=== PATIENT | male | born 1995 | race American Indian/Alaskan Native ===

== ENCOUNTER 2021-09-28 01:20 | Emergency (ER) | payer SELFPAY ==
[2021-09-28 02:13] VITALS: BP 133/88
[2021-09-28 03:29] LABS: Bilirubin,Urine NEG (Negative); Blood,Urine LG (Negative); Color,Urine Red (Yellow); Mucus,Urine FEW /HPF
[2021-09-28 03:32] LABS: RBC,Urine > 182.0 /HPF (0.0-6.0)
--- NOTE | 2021-09-28 03:38 | Cat Scan Report ---
CT ABDOMEN AND PELVIS WITHOUT CONTRAST INDICATION / CLINICAL INFORMATION: Gross hematuria, r/o kidney stones. TECHNIQUE: Axial CT images were obtained through the abdomen and pelvis without IV contrast. All CT scans at [facility] location are performed using CT dose reduction for ALARA by means of automated exposure control. COMPARISON: None available. FINDINGS: LOWER CHEST: No significant abnormality. LIVER: No significant abnormality. GALLBLADDER: No significant abnormality. BILE DUCTS: No significant abnormality. PANCREAS: No significant abnormality. SPLEEN: No significant abnormality. ADRENALS: No significant abnormality. RIGHT KIDNEY and URETER: Multiple calculi project within the right collecting system with mild promin ence of the right collecting system.. LEFT KIDNEY and URETER: No significant abnormality. STOMACH and SMALL BOWEL: No significant abnormality. COLON: No significant abnormality. APPENDIX: Not identified. PERITONEUM: No free fluid. No free air. No fluid collection. LYMPH NODES: No significant adenopathy. AORTA and ARTERIES: No significant abnormality. IVC and VEINS: No significant abnormality. URINARY BLADDER: No significant abnormality. REPRODUCTIVE ORGANS: No significant abnormality. ADDITIONAL FINDINGS: None. SKELETAL SYSTEM: No significant abnormality. IMPRESSION: Right-sided nephrolithiasis with slight prominence of the right collecting system. Has the patient re cently passed a urinary calculus No definite visualized calculus is identified within the right urete r at this time.. Signer Name: Margarito Pepe MD Signed: 09/28/2021 3:34 AM Workstation Name: [id number]
--- NOTE | 2021-09-28 04:27 | Emergency Department Report ---
ED Male HPI - General Chief complaint: Urogenital-Male Stated complaint: URINATING BLOOD Source: patient Mode of arrival: Ambulatory Limitations: No Limitations - History of Present Illness Initial comments: Patient is a 25-year-old -Citizen Of The [place] male with no past medical history presents to the ED with complaint of acute onset persistent gross hematuria intermittently for the last 1 week, worse in the last 24 hours with each episode of urination. Patient states that in the last 24 hours, each episode of urination he notices significant hematuria and he got concerned and decided come to the ED for evaluation. Patient denies testicular pain, dysuria, urinary frequency and urgency, fever, chills, penile discharge, abdominal pain, low back pain, flank pain, chest pain or shortness of breath and traumatic injury. MD Complaint: other (Gross hematuria) -: Sudden, week(s) (1) Location: penis Radiation: none Severity: moderate Consistency: constant Improves with: none Worsens with: urination denies other symptoms, blood in urine. denies: discharge, swelling, mass, rash, urinary retention, dysuria, fever, nausea/vomiting, incontinence - Related Data Sexually active: Yes Previous Rx's Medication Instructions Recorded Last Taken Type Ciprofloxacin HCl 500 mg PO Q12H #20 tab 09/28/21 Unknown Rx Ketorolac [Toradol] 10 mg PO Q8H PRN #20 tab 09/28/21 Unknown Rx Tamsulosin [Flomax] 0.4 mg PO QDAY #15 cap 09/28/21 Unknown Rx Allergies Allergy/AdvReac Type Severity Reaction Status Date / Time No Known Allergies Allergy Verified 09/28/21 02:13 ED Review of Systems ROS: Stated complaint: URINATING BLOOD Other details as noted in HPI Constitutional: denies: chills, fever Eyes: denies: eye pain, eye discharge, vision change ENT: denies: ear pain, throat pain Respiratory: denies: cough, shortness of breath, wheezing Cardiovascular: denies: chest pain, palpitations Endocrine: no symptoms reported Gastrointestinal: denies: abdominal pain, nausea, diarrhea Genitourinary: hematuria (Gross hematuria). denies: urgency, dysuria Musculoskeletal: denies: back pain, joint swelling, arthralgia Skin: denies: rash, lesions Neurological: denies: headache, weakness, paresthesias Psychiatric: denies: anxiety, depression Hematological/Lymphatic: denies: easy bleeding, easy bruising ED Past Medical Hx - Past Medical History Previous Medical History?: No - Surgical History Past Surgical History?: No - Medications Home Medications: Home Medications Medication Instructions Recorded Confirmed Last Taken Type Ciprofloxacin HCl 500 mg PO Q12H #20 tab 09/28/21 Unknown Rx Ketorolac [Toradol] 10 mg PO Q8H PRN #20 tab 09/28/21 Unknown Rx Tamsulosin [Flomax] 0.4 mg PO QDAY #15 cap 09/28/21 Unknown Rx ED Physical Exam - General Limitations: No Limitations General appearance: alert, in no apparent distress - Head Head exam: Present: atraumatic, normocephalic, normal inspection - Eye Eye exam: Present: normal appearance, PERRL, EOMI Pupils: Present: normal accommodation - ENT ENT exam: Present: normal exam, normal orophraynx, mucous membranes moist, TM's normal bilaterally, normal external ear exam - Neck Neck exam: Present: normal inspection, full ROM. Absent: tenderness - Respiratory Respiratory exam: Present: normal lung sounds bilaterally. Absent: respiratory distress, wheezes, rales, rhonchi, chest wall tenderness, accessory muscle use, decreased breath sounds, prolonged expiratory - Cardiovascular Cardiovascular Exam: Present: regular rate, normal rhythm, normal heart sounds. Absent: systolic murmur, diastolic murmur, rubs, gallop - GI/Abdominal GI/Abdominal exam: Present: soft, normal bowel sounds. Absent: tenderness, guarding, rebound, hyperactive bowel sounds, hypoactive bowel sounds - External exam: Present: other (Genital deferred at this time) - Extremities Exam Extremities exam: Present: normal inspection, full ROM, normal capillary refill. Absent: tenderness - Back Exam Back exam: Present: normal inspection, full ROM. Absent: tenderness, CVA tenderness (R), CVA tenderness (L), muscle spasm, paraspinal tenderness, vertebral tenderness - Neurological Exam Neurological exam: Present: alert, oriented X3, CN II-XII intact, normal gait, reflexes normal - Psychiatric Psychiatric exam: Present: normal affect, normal mood - Skin Skin exam: Present: warm, dry, intact, normal color. Absent: rash ED Course Vital Signs 09/28/21 02:09 Temperature 98.8 F Pulse Rate 70 Respiratory 12 Rate Blood Pressure 133/88 [Right] O2 Sat by Pulse 99 Oximetry ED Medical Decision Making - Lab Data Result diagrams: 09/28/21 03:40 09/28/21 03:40 - Radiology Data Radiology results: report reviewed, image reviewed [facility] [address] [place] [address] Cat Scan Report Signed Patient: ELIDIA RÍOS MR#: [id number] : 1995 Acct:[id number] Age/Sex: 25 / M ADM Date: 09/28/21 Loc: ED Attending Dr: Ordering Physician: OMAR OCNNORS Date of Service: 09/28/21 Procedure(s): CT abdomen pelvis wo con Accession Number(s): [id number] cc: OMAR CONNORS CT ABDOMEN AND PELVIS WITHOUT CONTRAST INDICATION / CLINICAL INFORMATION: Gross hematuria, r/o kidney stones. TECHNIQUE: Axial CT images were obtained through the abdomen and pelvis without IV contrast. All CT scans at this location are performed using CT dose reduction for ALARA by means of automated exposure control. COMPARISON: None available. FINDINGS: LOWER CHEST: No significant abnormality. LIVER: No significant abnormality. GALLBLADDER: No significant abnormality. BILE DUCTS: No significant abnormality. PANCREAS: No significant abnormality. SPLEEN: No significant abnormality. ADRENALS: No significant abnormality. RIGHT KIDNEY and URETER: Multiple calculi project within the right collecting system with mild prominence of the right collecting system.. LEFT KIDNEY and URETER: No significant abnormality. STOMACH and SMALL BOWEL: No significant abnormality. COLON: No significant abnormality. APPENDIX: Not identified. PERITONEUM: No free fluid. No free air. No fluid collection. LYMPH NODES: No significant adenopathy. AORTA and ARTERIES: No significant abnormality. IVC and VEINS: No significant abnormality. URINARY BLADDER: No significant abnormality. REPRODUCTIVE ORGANS: No significant abnormality. ADDITIONAL FINDINGS: None. SKELETAL SYSTEM: No significant abnormality. IMPRESSION: Right-sided nephrolithiasis with slight prominence of the right collecting system. Has the patient recently passed a urinary calculus No definite visualized calculus is identified within the right ureter at this time.. Signer Name: Margarito Pepe MD Signed: 09/28/2021 3:34 AM Workstation Name: [id number] Transcribed By: Dictated By: Margarito Pepe MD Electronically Authenticated By: Margarito Pepe MD Signed Date/Time: 09/28/21 0334 DD/ 9 TD/TT: - Medical Decision Making This is a 25-year-old -Citizen Of [place] male with no past medical history presents to the ED with complaint of acute onset persistent gross hematuria intermittently for the last 1 week, worse in the last 24 hours with each episode of urination. Patient states that in the last 24 hours, each episode of urination he notices significant hematuria and he got concerned and decided come to the ED for evaluation. In the ED, patient is alert and oriented x3 and is not in any distress. Patient is hemodynamically stable. Lab test results were reviewed and showed mild hypokalemia of 3.4 mmol/L and gross hematuria on urinalysis. Abdomen pelvis CT scan without contrast showed multiple calculi project within the right collecting system with mild prominence of the right collecting system. Patient was treated in the ED with Flomax. Patient was discharged home on pain medications, antibiotics, and Flomax and given a referral to the urologist Dr. Washburn for evaluation. Patient is advised to c ontact Dr. Washburn's office to schedule a follow-up appointment on Thursday September 30, 2021. Patient was advised return to the ED immediately if symptoms get worse. - Differential Diagnosis UTI; kidney stone; cystitis; STD; epididymitis; prostatitis, testicular CA Critical care attestation.: If time is entered above; I have spent that time in minutes in the direct care of this critically ill patient, excluding procedure time. ED Disposition Clinical Impression: Persistent gross hematuria, Calculus of right kidney, Acute urinary tract infection Disposition: HOME / SELF CARE / HOMELESS Is pt being admited?: No Does the pt Need Aspirin: No Condition: Stable Instructions: Kidney Stones, [id number], Renal Colic, Urinary Tract Infection, Adult, [id number], Hematuria, Adult Additional Instructions: The abdomen pelvis CT scan without contrast showed multiple calculi project within the right collecting system with mild prominence of the right collecting system. Therefore the gross hematuria is due to the kidney stones, or having passed kidney stone in the last few days. Therefore take medications with food, drink plenty of fluids, follow-up with the urologist Dr. Mona Mock in the next 3 to 5 days for reevaluation. Contact his office the first thing on Thursday, September 30, 2021 to schedule a follow-up appointment. Return to the ED immediately if symptoms get worse. Prescriptions: Ciprofloxacin HCl 500 mg PO Q12H #20 tab Tamsulosin [Flomax] 0.4 mg PO QDAY #15 cap Ketorolac [Toradol] 10 mg PO Q8H PRN #20 tab PRN Reason: Pain Referrals: ARIES WASHBURN MD [Staff Physician] - 3-5 Days THOR KIM MD [Primary Care Provider] - 7-10 days Time of Disposition: 04:31 Print Language: KENYAN
[2021-09-28] MEDS ORDERED: TAMSULOSIN 0.4 MG CAP PO ONE (04:36)
[2021-09-28 04:44] LABS: Alanine Aminotransferase 13 units/L (7-56); Albumin 4.5 g/dL (3.9-5); BUN/Creatinine Ratio 12; Blood Urea Nitrogen 12 mg/dL (9-20); Calcium 8.9 mg/dL (8.4-10.2); Hemolysis Index 9
[2021-09-28 04:50] LABS: Basophils % (Auto) 0.4 % (0.0-1.8); Eosinophils # (Auto) 0.1 K/mm3 (0.0-0.4); Eosinophils % (Auto) 0.9 % (0.0-4.3); Hematocrit 39.1 % (35.5-45.6); Hemoglobin 12.7 gm/dl (11.8-15.2); Lymphocytes # (Auto) 2.5 K/mm3 (1.2-5.4); Lymphocytes % (Auto) 24.7 % (13.4-35.0); Mean Corpuscular HGB Conc 33 % (32-34); Mean Corpuscular Volume 87 fl (84-94); Monocytes # (Auto) 0.7 K/mm3 (0.0-0.8); Monocytes % (Auto) 6.7 % (0.0-7.3); Platelet Count 206 K/mm3 (140-440); Red Blood Count 4.49 M/mm3 (3.65-5.03); Red Cell Distribution Width 14.7 % (13.2-15.2)
== END 2021-09-28 05:58 | disposition home or self-care (01) ==
LOC: ED 01:20
DX: R31.9 Hematuria, unspecified (principal); N20.0 Calculus of kidney; N39.0 Urinary tract infection, site not specified
CPT/HCPCS: 36415; 74176; 80053; 81001; 85025; 99284